=== PATIENT | male | born 1975 | race American Indian/Alaskan Native ===

== ENCOUNTER 2018-02-13 11:09 | Emergency (ER) | payer OTHER ==
[2018-02-13 12:09] VITALS: BP 154/97
--- NOTE | 2018-02-13 14:14 | Emergency Department Report ---
- General Chief complaint: Rectal Pain Stated complaint: HIDRADENITIS ON REAR Time Seen by Provider: 02/13/18 13:51 Source: patient Mode of arrival: Ambulatory Limitations: No Limitations - History of Present Illness Initial comments: This is a 42-year-old male nontoxic, well nourished in appearance, no acute signs of distress presents to the ED with c/o of multiple hidradenitis suppurativa x many years. Patient stated this has been going on for a long time and has been following-up with a primary care doctor and has been pescribed different medications but surgical consult was coming up but his insurance is not active and will reactivate in a few weeks. Patient stated the site has been drainage with purulant drainage. Patient denies any fever, chills, headache, nausea, vomiting, chest pain, shortness of breathe, stiff neck. Patient denies any drug allergies or any other past medical history. MD complaint: other (hidradenitis) Location: buttocks Severity: mild Severity scale (0 -10): 8 Quality: aching Consistency: constant Improves with: none Worsens with: none Context: none Associated symptoms: denies other symptoms Treatments Prior to Arrival: none - Related Data Previous Rx's Medication Instructions Recorded Last Taken Type Clindamycin [Clindamycin CAP] 300 mg PO Q8H 7 Days cap 02/13/18 Unknown Rx Doxycycline [Vibramycin CAP] 100 mg PO Q12HR #14 capsule 02/13/18 Unknown Rx Abscess Boil HPI - HPI Chief Complaint: Rectal Pain Stated Complaint: HIDRADENITIS ON REAR Time Seen by Provider: 02/13/18 13:51 Home Medications: Previous Rx's Medication Instructions Recorded Last Taken Type Clindamycin [Clindamycin CAP] 300 mg PO Q8H 7 Days cap 02/13/18 Unknown Rx Doxycycline [Vibramycin CAP] 100 mg PO Q12HR #14 capsule 02/13/18 Unknown Rx ED Review of Systems ROS: Stated complaint: HIDRADENITIS ON REAR Other details as noted in HPI Constitutional: denies: chills, fever Eyes: denies: eye pain, eye discharge, vision change ENT: denies: ear pain, throat pain Respiratory: denies: cough, shortness of breath, wheezing Cardiovascular: denies: chest pain, palpitations Endocrine: no symptoms reported Gastrointestinal: denies: abdominal pain, nausea, diarrhea Genitourinary: denies: urgency, dysuria Musculoskeletal: denies: back pain, joint swelling, arthralgia Skin: denies: rash, lesions Neurological: denies: headache, weakness, paresthesias Psychiatric: denies: anxiety, depression Hematological/Lymphatic: denies: easy bleeding, easy bruising ED Past Medical Hx - Medications Home Medications: Home Medications Medication Instructions Recorded Confirmed Last Taken Type Clindamycin [Clindamycin CAP] 300 mg PO Q8H 7 Days cap 02/13/18 Unknown Rx Doxycycline [Vibramycin CAP] 100 mg PO Q12HR #14 capsule 02/13/18 Unknown Rx ED Physical Exam - General Limitations: No Limitations General appearance: alert, in no apparent distress - Head Head exam: Present: atraumatic, normocephalic - Eye Eye exam: Present: normal appearance - ENT ENT exam: Present: mucous membranes moist - Neck Neck exam: Present: normal inspection - Respiratory Respiratory exam: Present: normal lung sounds bilaterally. Absent: respiratory distress - Cardiovascular Cardiovascular Exam: Present: regular rate, normal rhythm. Absent: systolic murmur, diastolic murmur, rubs, gallop - GI/Abdominal GI/Abdominal exam: Present: soft, normal bowel sounds - Rectal Rectal exam: Present: deferred - Extremities Exam Extremities exam: Present: normal inspection - Back Exam Back exam: Present: normal inspection - Neurological Exam Neurological exam: Present: alert, oriented X3 - Psychiatric Psychiatric exam: Present: normal affect, normal mood - Skin Skin exam: Present: warm, dry, intact, normal color. Absent: rash - Other Other exam information: several hidradenitis suppurativa with slight purulent drainage. No induration or flutance noted. No abscess noted. ED Course Vital Signs 02/13/18 12:05 Temperature 98.5 F Pulse Rate 82 Respiratory 18 Rate Blood Pressure 154/97 O2 Sat by Pulse 99 Oximetry - Reevaluation(s) Reevaluation #1: 02/13/18 14:16 Patient is speaking in full sentences with no signs of distress noted. ED Medical Decision Making - Medical Decision Making This is a 42-year-old male that presents with hidradenitis suppurativa. Patient is stable and was examined by me. Examination there is no induration or fluctuance are no signs of any abscess formation. There is purulent drainage tendon region. Today indicates patient to receive doxycycline and a follow-up for surgical procedures recommended. I will also add clindamycin empirically. Vital signs are stable prior to discharge. Patient is afebrile. Patient was instructed to refer to Follow-up with a primary care doctor in 3-5 days or if symptoms worsen and continue return to emergency room as soon as possible. At time of discharge, the patient does not seem toxic or ill in appearance. No acute signs of distress noted. Patient agrees to discharge treatment plan of care. No further questions noted by the patient. Critical care attestation.: If time is entered above; I have spent that time in minutes in the direct care of this critically ill patient, excluding procedure time. ED Disposition Clinical Impression: Hidradenitis suppurativa Disposition: TO HOME OR SELFCARE Is pt being admited?: No Does the pt Need Aspirin: No Condition: Stable Instructions: Doxycycline (By mouth), Clindamycin (By mouth) Additional Instructions: Follow-up with a primary care doctor in 3-5 days or if symptoms worsen and continue return to emergency room as soon as possible. Prescriptions: Clindamycin [Clindamycin CAP] 300 mg PO Q8H 7 Days cap Doxycycline [Vibramycin CAP] 100 mg PO Q12HR #14 capsule Referrals: PRIMARY CAREMD [Primary Care Provider] - 3-5 Days RIGOBERTO KENYON MD [Staff Physician] - 3-5 Days [facility] [Outside] - 3-5 Days [facility] [Outside] - 3-5 Days Forms: Work/School Release Form(ED)
== END 2018-02-13 14:28 | disposition home or self-care (01) ==
LOC: ED 11:09
DX: L73.2 Hidradenitis suppurativa (principal)
CPT/HCPCS: 99282